=== PATIENT | female | born 1990 | race Caucasian/White ===

== ENCOUNTER 2018-04-14 08:17 | Emergency (ER) | payer OTHER ==
[~2018-04-14] VITALS: Ht 157.5 cm; Wt 62.6 kg
[~2018-04-14 08:17] MED LIST: ADVIL200 MG; FIORICET 50-301 EACH; KETO10TA2 PO
[2018-04-14] MEDS ORDERED: OSEL75CA PO (11:18)
[2018-04-14] MEDS ORDERED: TUSSI PRES-B L120 M1 PO (11:18)
== END 2018-04-14 11:23 | disposition home or self-care (01) ==
LOC: ER 08:17
DX: R51 Headache (principal)

== ENCOUNTER 2023-12-29 12:24 | Inpatient (IN) | payer OTHER ==
[~2023-12-29] VITALS: Ht 157.5 cm; Wt 78.5 kg
[~2023-12-29 12:24] MED LIST changes: +OSEL75CA PO; +TUSSI PRES-B L120 M1 PO
[2023-12-29 12:52] VITALS: BP 102/64
[2023-12-29 13:02] VITALS: BP 102/64; O2SAT 98
[2023-12-29 13:48] VITALS: BP 102/64
[2023-12-29] MEDS ORDERED: RINGERS SOLUTION,LACTATED 1,000 ML IV SCH (14:00)
[2023-12-29 15:07] LABS: HEMATOCRIT 26.6 % (36.0-45.00); MEAN CELL VOLUME 84.2 fL (80.00-100.00); MEAN CORPUSCULAR HGB CONC 35.6 g/dl (32.0-36.0); PLATELET COUNT 177 K/uL (150-450); RED BLOOD COUNT 3.16 M/uL (4.00-6.00); RED CELL DISTRIBUTION WIDTH 12.8 % (11.5-14.5)
[2023-12-29 15:19] LABS: HEMOGLOBIN 9.5 g/dL (12.0-15.00)
[2023-12-29 15:26] VITALS: BP 107/66; O2SAT 97
[2023-12-29 15:28] LABS: ALBUMIN 2.7 gm/dL (3.4-5.0); BILIRUBIN TOTAL 0.39 mg/dL (0.3-1.2); CALCIUM 8.5 mg/dL (8.5-10.1); CREATININE SERUM 0.4 mg/dL (0.55-1.02); GFR 181.64; GLOBULINA 3.6 G/DL (2.4-3.5); POTASSIUM 4.02 mEq/L (3.5-5.1); TOTAL PROTEIN 6.3 gm/dL (6.4-8.2)
[2023-12-29] MEDS ORDERED: OSELTAMIVIR PHOSPHATE 75 MG CAPSULE PO SCH (17:00)
[2023-12-30 01:00] VITALS: BP 105/71
[2023-12-30] MEDS ORDERED: IRON/V.C/V.B12/FOLIC A/VIT. E 1 CAPL CAPLET PO NR (10:00)
[2023-12-30] MEDS ORDERED: OSELTAMIVIR PHOSPHATE 75 MG CAPSULE PO NR (10:00)
[2023-12-30] MEDS ORDERED: AZITHROMYCIN 500 MG TABLET PO NR (10:00)
[2023-12-30 10:01] VITALS: BP 111/72; O2SAT 99
[2023-12-30 16:00] VITALS: BP 94/62
[2023-12-30] MEDS ORDERED: OSELTAMIVIR PHOSPHATE 75 MG CAPSULE PO SCH (21:00)
[2023-12-31] VITALS: BP 95/62; O2SAT 99
[2023-12-31] MEDS ORDERED: OSEL75CA PO (07:35)
[2023-12-31 08:00] VITALS: BP 102/64
[2023-12-31] MEDS ORDERED: IRON/V.C/V.B12/FOLIC A/VIT. E 1 CAPL CAPLET PO SCH (09:00)
== END 2023-12-31 10:58 | disposition home or self-care (01) | DRG 833 ==
LOC: OBS/DEL 12:24 → LDR 13:48 → OB/GYN 13:48
PROVIDERS: Obstetrics & Gynecology Maternal & Fetal Medicine; ADMIT Obstetrics & Gynecology Gynecology; ATTEND Obstetrics & Gynecology Gynecology
PROC: 4A1HXCZ Monitoring of Products of Conception, Cardiac Rate, External Approach (ICD-10-PCS; principal; 2023-12-29)
DX: O26.893 Other specified pregnancy related conditions, third trimester (principal); J11.1 Influenza due to unidentified influenza virus with other respiratory manifestations; Z3A.30 30 weeks gestation of pregnancy

== ENCOUNTER → 2024-01-13 | Outpatient (CLI) | payer OTHER | END | disposition home or self-care (01) | LOC: NST 10:19 | PROVIDERS: ATTEND Obstetrics & Gynecology | DX: Z34.83 Encounter for supervision of other normal pregnancy, third trimester (principal) ==

== ENCOUNTER 2024-02-25 10:09 | Inpatient (IN) | payer OTHER ==
[~2024-02-25] VITALS: Ht 157.5 cm; Wt 3.6 kg
[2024-03-03 14:16] VITALS: BP 125/72
[2024-03-03 14:59] LABS: HEMATOCRIT 32.5 % (36.0-45.00); HEMOGLOBIN 11.2 g/dL (12.0-15.00); MEAN CELL VOLUME 83.8 fL (80.00-100.00); MEAN CORPUSCULAR HEMOGLOBIN 28.9 pg (27.00-32.0); MEAN CORPUSCULAR HGB CONC 34.4 g/dl (32.0-36.0); PLATELET COUNT 185 K/uL (150-450); RED BLOOD COUNT 3.87 M/uL (4.00-6.00); RED CELL DISTRIBUTION WIDTH 13.6 % (11.5-14.5)
[2024-03-03] MEDS ORDERED: RINGERS SOLUTION,LACTATED 1,000 ML IV SCH (15:15)
[2024-03-03] MEDS ORDERED: MORPHINE SULFATE 4 MG/ML CARTRIDGE IV PRN (15:15)
[2024-03-03 15:22] LABS: URINE APPEARANCE Clear; URINE BILIRRUBIN Negative (NEGATIVE); URINE BLOOD Negative; URINE COLOR Yellow; URINE GLUCOSE Negative (NEGATIVE); URINE KETONE Negative (NEGATIVE); URINE LEUKOCYTE Negative; URINE NITRATE Negative; URINE PROTEIN Negative (NEGATIVE); URINE UROBILINOGEN 0.2 E.U./dl
[2024-03-03 15:25] LABS: URINE BACTERIA 118.6 uL (0.0-1933); URINE EPITHELIAL CELLS 13.1 uL (0.0-38.8); URINE WBC 2.6 uL (0.0-23.2)
[2024-03-03 15:31] LABS: URINE RBC 0.5 uL (0.0-20.8)
[2024-03-03 15:35] VITALS: BP 128/84
[2024-03-03 15:42] LABS: INR < 0.93; PARTIAL THROMBOPLASTIN TIME 28.3 SECONDS (22.0-34.0); PROTHROMBIN TIME 10.2 SECONDS (9.0-11.5)
[2024-03-03 15:47] LABS: ALBUMIN 2.8 gm/dL (3.4-5.0); BILIRUBIN TOTAL 0.52 mg/dL (0.3-1.2); CALCIUM 8.6 mg/dL (8.5-10.1); CREATININE SERUM 0.53 mg/dL (0.55-1.02); GFR 131.27; GLOBULINA 3.5 G/DL (2.4-3.5); POTASSIUM 4.02 mEq/L (3.5-5.1); TOTAL PROTEIN 6.3 gm/dL (6.4-8.2)
[2024-03-03] MEDS ORDERED: MISOPROSTOL 25 MCG TABLET VAG ONE (20:00)
[2024-03-03 23:38] VITALS: BP 126/74
[2024-03-04 03:17] VITALS: BP 125/69
[2024-03-04 07:26] VITALS: BP 120/65
[2024-03-04] MEDS ORDERED: OXYTOCIN 500 ML IV ONE (08:45)
[2024-03-04 11:22] VITALS: BP 117/80
[2024-03-04] MEDS ORDERED: PROMETHAZINE HCL 25 MG/ML AMPUL IV ONE (13:15)
[2024-03-04] MEDS ORDERED: MEPERIDINE HCL/PF 25 MG/ML VIAL IV ONE (13:15)
[2024-03-04 13:20] VITALS: BP 136/76
[2024-03-04] MEDS ORDERED: PRENATABS RX T1 EACH PO (14:36)
[2024-03-04 16:31] VITALS: BP 119/57
[2024-03-04] MEDS ORDERED: METOCLOPRAMIDE HCL 5 MG/ML VIAL IV ONE (19:30)
[2024-03-04 19:57] VITALS: BP 142/67
[2024-03-04] MEDS ORDERED: MORPHINE SULFATE 4 MG/ML VIAL IV SCH (21:20)
[2024-03-04] MEDS ORDERED: DOCUSATE SODIUM 100MG CAP PO SCH (21:21)
[2024-03-04] MEDS ORDERED: KETOROLAC TROMETHAMINE 30 MG VIAL IV SCH (21:21)
[2024-03-04] MEDS ORDERED: CEFAZOLIN SODIUM 1,000 MG VIAL IV SCH (21:30)
[2024-03-04] MEDS ORDERED: OXYTOCIN 1,000 ML IV ONE (21:30)
[2024-03-04] MEDS ORDERED: ERYTHROMYCIN BASE OPHT 1GM EACH TUBE OP ONE (23:45)
[2024-03-04] MEDS ORDERED: OXYTOCIN 20 UNITS/1000ML RL PIGGYBAG IV ONE (23:45)
[2024-03-05 02:06] VITALS: BP 106/64
[2024-03-05] MEDS ORDERED: ACETAMINOPHEN 500 MG GEL..CAP PO SCH (06:00)
[2024-03-05 06:49] LABS: HEMATOCRIT 29.3 % (36.0-45.00); HEMOGLOBIN 10.1 g/dL (12.0-15.00); MEAN CORPUSCULAR HEMOGLOBIN 28.8 pg (27.00-32.0); MEAN CORPUSCULAR HGB CONC 34.7 g/dl (32.0-36.0); PLATELET COUNT 181 K/uL (150-450); RED BLOOD COUNT 3.53 M/uL (4.00-6.00); RED CELL DISTRIBUTION WIDTH 13.6 % (11.5-14.5)
[2024-03-05] MEDS ORDERED: SIMETHICONE 125 MG CAPSULE PO SCH (09:00)
[2024-03-05] MEDS ORDERED: GABAPENTIN 300 MG CAPSULE PO SCH (09:00)
[2024-03-05] MEDS ORDERED: PNV,CALCIUM 72/IRON/FOLIC ACID 1 TAB TABLET PO SCH (09:00)
[2024-03-05 11:05] VITALS: BP 103/66
[2024-03-05] MEDS ORDERED: IBUprofen 600 MG TABLET PO SCH (12:00)
[2024-03-05 16:09] VITALS: BP 94/62; O2SAT 97
[2024-03-06 01:14] VITALS: BP 93/65
[2024-03-06 08:00] VITALS: BP 103/68
== END 2024-03-06 12:29 | disposition home or self-care (01) | DRG 788 ==
LOC: OB/GYN 03-03 10:07 → LDR 03-03 13:51 → OB/GYN 03-04 23:08
PROVIDERS: ADMIT Obstetrics & Gynecology Gynecology; ATTEND Obstetrics & Gynecology Gynecology
PROC: 3E0P7VZ Introduction of Hormone into Female Reproductive, Via Natural or Artificial Opening (ICD-10-PCS; 2024-03-03)
PROC: 4A1HXCZ Monitoring of Products of Conception, Cardiac Rate, External Approach (ICD-10-PCS; 2024-03-03)
PROC: 3E033VJ Introduction of Other Hormone into Peripheral Vein, Percutaneous Approach (ICD-10-PCS; 2024-03-04)
PROC: 10D00Z1 Extraction of Products of Conception, Low, Open Approach (ICD-10-PCS; principal; 2024-03-04 22:00)
DX: O62.1 Secondary uterine inertia (principal); Z3A.38 38 weeks gestation of pregnancy; Z37.0 Single live birth; Z20.822 Contact with and (suspected) exposure to COVID-19